=== PATIENT | female | born 1995 | race Asian ===

== ENCOUNTER 2017-04-10 00:20 | Outpatient (CLI) | payer OTHER ==
[~2017-04-10] VITALS: Ht 149.9 cm; Wt 68.0 kg
[2017-04-10] MEDS ORDERED: diphenhydrAMINE 25 MG CAP As Ordered ONE (02:29)
[2017-04-10] MEDS ORDERED: PERM5CR EXT (03:22)
== END 2017-04-10 03:35 | disposition home or self-care (01) ==
LOC: M LDO 00:20
PROVIDERS: ATTEND Obstetrics & Gynecology
DX: O99.89 Other specified diseases and conditions complicating pregnancy, childbirth and the puerperium (principal); Z3A.29 29 weeks gestation of pregnancy; L29.9 Pruritus, unspecified; R21 Rash and other nonspecific skin eruption